=== PATIENT | male | born 1980 | race Caucasian/White ===

== ENCOUNTER 2016-09-24 16:30 | Outpatient (RCR) | payer BC | END 2016-10-08 14:23 | disposition home or self-care (01) | LOC: WSPT 16:30 | DX: M25.512 Pain in left shoulder (principal) | CPT/HCPCS: G0283-GP ==

== ENCOUNTER 2019-06-28 07:45 | Outpatient (RCR) | payer BC | END 2019-08-20 | disposition home or self-care (01) | LOC: WSPT | DX: M25.552 Pain in left hip (principal); R10.2 Pelvic and perineal pain ==